=== PATIENT | female | born 1975 | race Two or more races ===

== ENCOUNTER 2017-03-07 18:06 | Emergency (ER) | payer OTHER ==
[~2017-03-07 18:06] MED LIST: BENICAR HCT 20-1 TAB PO; CELEXA10 M1 PO; DARVOCET-N 1001 TAB; DULCOLAX STOOL100 MG; MOTRIN800 MG; ORACEA40 MG PO; PRENATAL1 TAB; STERIOD CREAM
[2017-03-07] MEDS ORDERED: HYDROCHLOROTHIA25 M1 PO (18:26)
[2017-03-07] MEDS ORDERED: ZYRTEC10 M7 PO (18:27)
[2017-03-07] MEDS ORDERED: POTASSIUM CHLO10 ME2 PO (18:27)
[2017-03-07] MEDS ORDERED: SINGULAIR10 M1 PO (18:27)
[2017-03-07 18:58] LABS: BASO % 0.2 % (0-2); EOS % 0.9 % (0-7); EOSINOPHIL ABSOLUTE COUNT 0.1 tho/cmm (0.0-0.7); HCT-HEMATOCRIT 38.5 % (34.0-49.0); HGB-HEMOGLOBIN 13.2 gm/dl (12.0-15.5); IMMATURE GRANULOCYTES ABSOLUTE 0.02 tho/cmm (0-0.03); IMMATURE GRANULOCYTES PERCENT 0.2 % (0-0.3); LYMPH % 14.6 % (20-45); LYMPH ABSOLUTE COUNT 1.3 tho/cmm (0.8-4.5); MCH (MEAN CORPUSCULAR HGB) 29.6 pg (28.0-32.0); MCHC MEAN CORPUSCULAR HGB CONC 34.3 % (32.0-36.0); MCV (MEAN CELL VOLUME) 86.3 fl (82.0-96.0); MEAN PLATELET VOLUME 9.6 cmc (9.4-12.4); MONO % 8.7 % (0-12); MONOCYTE ABSOLUTE COUNT 0.8 tho/cmm (0.0-1.2); NEUTROPHIL ABSOLUTE COUNT 6.5 tho/cmm (1.6-8.0); NEUTROPHIL-AUTOMATED 6.5 tho/cmm (1.6-8.0); NEUTROPHILS % 75.4 % (40-80); PLATELET COUNT 251 tho/cmm (150-450); RED BLOOD COUNT 4.46 mil/cmm (4.00-5.20); RED CELL DISTRIBUTION WIDTH 13.4 % (12.4-16.4); WHITE BLOOD COUNT 8.6 tho/cmm (4.0-10.0)
[2017-03-07 19:07] LABS: URINE APPEARANCE CLEAR; URINE BILIRUBIN NEGATIVE (NEG); URINE BLOOD NEGATIVE (NEG); URINE COLOR PALE YELLOW; URINE GLUCOSE (UA) NEGATIVE (NEG); URINE KETONE NEGATIVE (NEG); URINE LEUKOCYTE ESTERASE NEGATIVE (NEG); URINE NITRITE NEGATIVE (NEG); URINE PROTEIN NEGATIVE (NEG)
[2017-03-07 19:09] LABS: PREGNANCY-SERUM NEGATIVE (NEGATIVE)
[2017-03-07 19:14] LABS: ALB/GLOB RATIO 0.7 (0.8-2.0); ALKALINE PHOSPHATASE 76 U/L (33-138); ALT/SGPT 61 U/L (12-78); ANION GAP 9 mmol/L (0-20); AST/SGOT 26 U/L (10-40); BILIRUBIN,TOTAL 0.3 mg/dl (0-1.5); BLOOD UREA NITROGEN 8 mg/dl (6-24); CALCIUM 8.6 mg/dl (8.5-10.5); CARBON DIOXIDE-VENOUS 28 mmol/L (22-32); CHLORIDE 105 mmol/l (96-110); CREATININE 0.47 mg/dl (0.50-1.10); GLUCOSE 98 mg/dL (70-110); LIPASE 150 U/L (73-393); POTASSIUM 3.3 mmol/L (3.7-5.1); SODIUM 139 mmol/L (135-145); eGFR VALUE FOR BLACK >90 mL/Min
[2017-03-07] MEDS ORDERED: PERCOCET 5-3251 EACH PO (22:29)
== END 2017-03-07 22:41 ==
LOC: EDMED 18:06
PROVIDERS: Physician Assistant
DX: N83.202 Unspecified ovarian cyst, left side (principal); I10 Essential (primary) hypertension; F17.210 Nicotine dependence, cigarettes, uncomplicated; Z90.89 Acquired absence of other organs
CPT/HCPCS: J1885; J2405; J7030; P9612; Q9967